=== PATIENT | male | born 1985 | race Caucasian/White ===

== ENCOUNTER 2016-08-01 09:29 | Emergency (ER) | payer OTHER ==
[2016-08-01] MEDS ORDERED: KETOROLAC 60 MG/2 ML VIAL IVP STA (12:29)
[2016-08-01] MEDS ORDERED: ONDANSETRON 4 MG/2 ML VIAL IVP STA (12:29)
[2016-08-01] MEDS ORDERED: HYDROmorphone 1 MG/ML SYRINGE IVP STA (12:29)
[2016-08-01] MEDS ORDERED: SODIUM CHLORIDE 0.9% 1,000 ML IV ONE (12:30)
[2016-08-01] MEDS ORDERED: HYDROmorphone 1 MG/ML SYRINGE ONE (12:37)
[2016-08-01] MEDS ORDERED: ONDANSETRON 4 MG/2 ML VIAL ONE (12:37)
[2016-08-01] MEDS ORDERED: KETOROLAC 30 MG/ML VIAL ONE (12:37)
[2016-08-01] MEDS ORDERED: TAMSULOSIN 0.4 MG CAPSULE PO STA (14:10)
[2016-08-01] MEDS ORDERED: TAMSULOSIN 0.4 MG CAPSULE ONE (14:14)
== END 2016-08-01 14:30 | disposition home or self-care (01) ==
DX: N20.1 Calculus of ureter (principal); R10.31 Right lower quadrant pain
CPT/HCPCS: 36415; 51798; 74176; 80053; 81001; 83690; 85025; 96361; 96374; 96375; 99283; 99284; A9270; J1170